=== PATIENT | female | born 1965 | race Caucasian/White ===

== ENCOUNTER 2016-06-25 21:56 | Observation (INO) | payer BC, OTHER ==
[~2016-06-25] VITALS: Ht 165.1 cm; Wt 59.0 kg
[2016-06-25] MEDS ORDERED: MULTCAP11 PO (22:29)
[2016-06-26] VITALS (11 sets, daily range): BP systolic 99–118; BP diastolic 57–64
[2016-06-26] MEDS ORDERED: ACETAMINOPHEN 325 MG TAB PO ONE
[2016-06-26] MEDS ORDERED: ONDANSETRON 4MG/2ML VIAL (J2405) IV ONE
[2016-06-26] MEDS ORDERED: NS 1,000 ML IV ONE
[2016-06-26] MEDS: MORPHINE 4 MG/ML 1ML SYRINGE IV PRN ×2 (00:10→01:24)
[2016-06-26 00:33] LABS: CONTROL LINE UCG INT CTR LINE PRESENT
[2016-06-26 00:44] LABS: BASO % 0.1 % (0.0-1.0); EOS % 0.2 % (0.0-3.0); LARGE UNSTAINED CELL # 0.1 K/mm3 (0.0-0.4); LARGE UNSTAINED CELL % 0.9 % (0.0-4.0); LYMPH # 0.2 K/mm3 (1.5-4.5); LYMPH % 1.8 % (24.0-44.0); MEAN CORPUSCULAR HEMOGLOBIN 22.6 pg (27.0-33.0); MEAN CORPUSCULAR HGB CONC 29.9 g/dl (32.0-36.5); MEAN CORPUSCULAR VOLUME 75.4 fl (80.0-96.0); MONO # 0.3 K/mm3 (0.0-0.8); MONO % 3.1 % (0.0-5.0); NEUTROPHILS # 9.8 K/mm3 (1.8-7.7); NEUTROPHILS % 93.9 % (36.0-66.0); PLATELET COUNT, AUTOMATED 176 k/mm3 (150-450); RED CELL DISTRIBUTION WIDTH 15.3 % (11.5-14.5); WHITE BLOOD COUNT 10.4 K/mm3 (4.0-10.0)
[2016-06-26 00:53] LABS: ALBUMIN 3.8 GM/DL (3.2-5.2); ALBUMIN/GLOBULIN RATIO 1.03 (1.00-1.93); ALKALINE PHOSPHATASE 44 U/L (45-117); ALT/SGPT 21 U/L (12-78); ANION GAP 12 MEQ/L (8-16); AST/SGOT 23 U/L (15-37); BILIRUBIN,DIRECT < 0.1 MG/DL (0.0-0.2); BILIRUBIN,TOTAL 0.4 MG/DL (0.2-1.0); BLOOD UREA NITROGEN 14 MG/DL (7-18); CALCIUM LEVEL 8.7 MG/DL (8.5-10.1); CARBON DIOXIDE LEVEL 21 MEQ/L (21-32); CHLORIDE LEVEL 107 MEQ/L (98-107); CREATININE FOR GFR 0.83 MG/DL (0.55-1.02); GLOMERULAR FILTRATION RATE > 60.0 (>51); GLUCOSE, FASTING 140 MG/DL (70-105); POTASSIUM SERUM 3.8 MEQ/L (3.5-5.1); SODIUM LEVEL 140 MEQ/L (136-145); TOTAL PROTEIN 7.5 GM/DL (6.4-8.2)
[2016-06-26] MEDS ORDERED: ISOVUE-370 76% 100ML VIAL (Q9967) As Ordered ONE (00:57)
[2016-06-26] MEDS ORDERED: PIPERACILLIN/TAZOBACTAM SOD 3.375 GM in D5W MINI-BAG PLUS 50 ML IV ONE (01:30)
--- NOTE | 2016-06-26 01:50 | REPUSA ---
CLINICAL HISTORY: Abdominal pain. TECHNIQUE: Multiple axial, sagittal and coronal CT images were obtained through the abdomen and pelvi s after administration of intravenous contrast material. COMMENTS: Enlarged appendix measuring 1.5 cm. Abnormal enhancement of the wall of the appendix with surrounding fat stranding. The liver is mildly enlarged without mass or defect. There is no intra or extrahepatic biliary ductal dilatation. 1.5 cm well-defined hypodense splenic lesion. The gallbladder is within normal limits. T he pancreas is of normal contour and attenuation characteristics. There is no evidence of adrenal mas s. Both kidneys demonstrate prompt and equal nephrograms. The kidneys are normal in size, shape and conf iguration. There is no evidence of renal or ureteral mass. No renal or ureteral calculi are identifie d. There is no hydroureter or hydronephrosis. There is no bowel wall thickening. No evidence for small or large bowel obstruction. There is no evid ence of abdominal ascites or lymphadenopathy. There is no evidence of intrinsic or extrinsic bladder mass. Mildly thickened bladder. There is no pe lvic ascites or lymphadenopathy. Moderate large bowel fecal stasis. Mild changes of pelvic congestion syndrome. Images of the lung bases show no evidence of pleural or parenchymal mass. There are no pleural effusi ons. The bony structures are free of lytic or blastic lesions. Multilevel degenerative changes are seen in volving the thoracolumbar spine. Scattered calcifications are seen involving the aorta and major bran ches compatible with atherosclerosis. Fat-containing umbilical hernia without incarceration. IMPRESSION: Acute appendicitis. No perforation or abscess formation. Hepatomegaly. Large bowel fecal stasis. Thank you for your kind referral of this patient.
[2016-06-26] MEDS ORDERED: VITMTA PO (02:46)
[2016-06-26] MEDS ORDERED: ONDANSETRON 4MG/2ML VIAL (J2405) IV PRN ×2 (04:45→13:00)
[2016-06-26] MEDS: LR 1,000 ML IV SCH ×2 (04:45→15:45)
[2016-06-26] MEDS: MORPHINE 2 MG/ML 1ML SYRINGE IV PRN ×2 (04:47→08:47)
[2016-06-26] MEDS ORDERED: fentaNYL 250 MCG/5 ML INJECTION (J3010) As Ordered ONE (10:14)
[2016-06-26] MEDS ORDERED: dexameTHASONE 4 MG/ML 1ML VIAL (J1100) As Ordered ONE (10:14)
[2016-06-26] MEDS ORDERED: LIDOCAINE 2% INJ 100 MG/5 ML SDV (FOR ANES.) As Ordered ONE (10:14)
[2016-06-26] MEDS ORDERED: ROCURONIUM BROMIDE 50 MG/5 ML VIAL As Ordered ONE (10:14)
[2016-06-26] MEDS ORDERED: ONDANSETRON 4MG/2ML VIAL (J2405) As Ordered ONE ×2 (10:14→12:14)
[2016-06-26] MEDS ORDERED: PROPOFOL 200 MG/20 ML VIAL As Ordered ONE (10:14)
[2016-06-26] MEDS ORDERED: MIDAZOLAM INJ 2 MG/2 ML VIAL (J2250) As Ordered ONE (10:15)
[2016-06-26] MEDS ORDERED: SEVOFLURANE INHAL SOLN 250 ML BTL As Ordered ONE (11:34)
[2016-06-26] MEDS ORDERED: BUPIVACAINE/EPIN 0.25% 30 ML VIAL As Ordered ONE (11:34)
[2016-06-26] MEDS ORDERED: NORCO, ANEXSIA 5/325MG TABLET (HYDROcodone/ACETAMINOPHEN) PO PRN (12:00)
[2016-06-26] MEDS ORDERED: ePHEDrine SULFATE 25 MG/5 ML(5MG/ML) SYRINGE As Ordered ONE (12:00)
[2016-06-26] MEDS ORDERED: ACETAMINOPHEN TAB 650MG DOSE (2X325MG) PO PRN (12:00)
[2016-06-26] MEDS ORDERED: KETOROLAC 30 MG/ML VIAL (J1885) IV PRN (12:00)
[2016-06-26] MEDS ORDERED: ceFAZolin 1GM INJ (J0690) As Ordered ONE (12:04)
[2016-06-26] MEDS ORDERED: NEOSTIGMINE 1MG/ML 5 ML SYRINGE (J2710) As Ordered ONE (12:14)
[2016-06-26] MEDS ORDERED: GLYCOPYRROLATE INJ 0.2 MG/ML 2 ML VIAL As Ordered ONE (12:14)
[2016-06-26] MEDS ORDERED: KETOROLAC 60 MG/2 ML VIAL (J1885) As Ordered ONE (12:14)
[2016-06-26] MEDS ORDERED: fentaNYL 100 MCG/2 ML INJECTION (J3010) IV PRN (13:00)
[2016-06-26] MEDS ORDERED: PIPERACILLIN/TAZOBACTAM SOD 3.375 GM in D5W MINI-BAG PLUS 50 ML IV SCH ×2 (13:00→16:15)
[2016-06-26] MEDS ORDERED: LR 1,000 ML IV SCH (13:00)
[2016-06-26] MEDS: SENOKOT S TAB PO SCH ×2 (15:44→21:18)
[2016-06-26] MEDS: PIPERACILLIN/TAZOBACTAM SOD 3.375 GM in D5W MINI-BAG PLUS 50 ML IV SCH ×2 (16:38→21:18)
[2016-06-27] VITALS: BP 84/54
[2016-06-27 04:00] VITALS: BP 95/52
[2016-06-27] MEDS: PIPERACILLIN/TAZOBACTAM SOD 3.375 GM in D5W MINI-BAG PLUS 50 ML IV SCH ×2 (04:45→09:38)
--- NOTE | 2016-06-27 06:31 | HPE ---
DATE OF ADMISSION: 06/26/2016 Reason for admission is right lower quadrant pain. HISTORY OF PRESENT ILLNESS: Patient is a 51-year-old female, started to have right lower quadrant pain, nausea and vomiting around 4 p.m. yesterday. Pain got progressively worse. She came the emergency room with a fever of 102. In the emergency room (ER), she had labs done, which showed a white count 10. However, CT scan showed signs of acute appendicitis. She was then admitted overnight. This morning her pain has improved, fevers gone after having some morphine and Zosyn. However, she still has significant pain and tenderness in the right lower quadrant. No recent trauma to the area. No recent illnesses. No previous abdominal surgeries. PAST MEDICAL HISTORY: Negative. HOME MEDICATIONS: None. ALLERGIES: None. SOCIAL HISTORY: Denies drug, alcohol or tobacco usage. FAMILY HISTORY: Noncontributory. REVIEW OF SYSTEMS: Pertinent positives negative, stated in the HPI. PHYSICAL EXAMINATION: General: Awake, alert, and oriented times three. No acute stress. Vital signs: Stable, currently afebrile. HEENT: Pupils equal, round, reactive to light and accommodation. Heart: S1, S2. Regular rate and rhythm. Lungs: Clear auscultation bilaterally. Abdomen: Soft, tender to palpation right lower quadrant. Localized guarding. No signs of peritonitis. Extremities: No clubbing, cyanosis or edema. LABORATORY DATA: White count is 10. IMAGING: CT abdomen and pelvis shows a dilated, thickened appendix consistent with appendicitis. ASSESSMENT AND PLAN: Patient is a 51-year-old female with signs and symptoms consistent with acute appendicitis. RECOMMENDATIONS: Proceed with laparoscopic, possible open appendectomy. Risks and benefits of the procedure not limited but including bleeding, infection, hernia formation, damage surrounding structure, need for further surgery are discussed in detail with the patient. Informed was obtained and procedure was planned. Postoperatively, she will be kept overnight and make sure she does not have anymore fevers. She will be given a couple more dose of intravenous (IV) antibiotics and plan to discharge home in the morning.
[2016-06-27 07:17] LABS: ANION GAP 10 MEQ/L (8-16); BLOOD UREA NITROGEN 10 MG/DL (7-18); CALCIUM LEVEL 8.1 MG/DL (8.5-10.1); CARBON DIOXIDE LEVEL 21 MEQ/L (21-32); CHLORIDE LEVEL 111 MEQ/L (98-107); CREATININE FOR GFR 0.65 MG/DL (0.55-1.02); GLOMERULAR FILTRATION RATE > 60.0 (>51); GLUCOSE, FASTING 102 MG/DL (70-105); POTASSIUM SERUM 3.9 MEQ/L (3.5-5.1); SODIUM LEVEL 142 MEQ/L (136-145)
[2016-06-27 07:25] LABS: MEAN CORPUSCULAR HEMOGLOBIN 22.9 pg (27.0-33.0); MEAN CORPUSCULAR HGB CONC 30.2 g/dl (32.0-36.5); MEAN CORPUSCULAR VOLUME 75.8 fl (80.0-96.0); RED CELL DISTRIBUTION WIDTH 15.7 % (11.5-14.5); WHITE BLOOD COUNT 11.4 K/mm3 (4.0-10.0)
[2016-06-27 08:15] VITALS: BP 94/52
[2016-06-27] MEDS: SENOKOT S TAB PO SCH (09:38)
--- NOTE | 2016-06-27 10:22 | RO ---
DATE OF PROCEDURE: 06/26/2016 PREOPERATIVE DIAGNOSIS: Acute appendicitis. POSTOPERATIVE DIAGNOSIS: Acute appendicitis. PROCEDURE: Laparoscopic appendectomy. SURGEON: Kaveh Horowitz DO PROMOTIONS PRODUCER: None. ANESTHESIA: General. ESTIMATED BLOOD LOSS (EBL): 5. COMPLICATIONS: None. INDICATION FOR PROCEDURE: The patient is a 51-year-old female with acute appendicitis. The remedy is to proceed laparoscopic, possible open appendectomy. Risks and benefits of the procedure not limited but including bleeding, infection, hernia formation, damage to surrounding structures, and need for further surgery were discussed in detail with the patient. Informed consent was obtained, and procedure was planned. DESCRIPTION OF PROCEDURE: The patient brought back to operating room #3 after sufficient sedation and was sterilely prepped and draped. Next, time-out was done to confirm proper patient and proper procedure. Following that, a 5 mm incision made in the left lower quadrant. Veress needle was inserted, and abdomen was insufflated to 15 mmHg of mercury. Next, the Veress needle was removed. A 55 mm Optiview port used to gain access to the abdomen. Once thee abdomen was entered, another 8 mm port was placed at the umbilicus and another 5 mm port suprapubic. The cecum was then identified. On gentle traction cephalad, the appendix was easily identified, as well. The appendix was elevated up. The mesoappendix was taken down using the Enseal all the way to the base. Once the base of the appendix was reached, two polydioxanone suture (PDS) Endoloops were placed around the base of the appendix and tightened. The appendix was then amputated using the Enseal and brought out through the umbilical port site with a 5 mm Endo Catch bag. The right lower quadrant was examined to confirm hemostasis. The abdomen was then desufflated. Skin incision closed with 4-0 Vicryl subcuticular sutures. The abdomen was cleaned and dried. Steri-Strips, 4 x 4, and tape were applied, thus ending the procedure.
[2016-06-27] MEDS ORDERED: NORCOTAB PO (12:10)
[2016-06-27] MEDS ORDERED: SENN1TAB2 PO (12:10)
== END 2016-06-27 14:25 | disposition home or self-care (01) ==
LOC: M ED 23:16 → M PED 23:17 → UNDOADMOB 06-26 02:04 → INTOOBSV 06-26 02:04 → M ED INP 06-26 02:04 → M PED 06-26 04:10 → UNDODISOB 06-27 14:25
PROVIDERS: ADMIT Surgery; ATTEND Surgery
DX: K35.89 Other acute appendicitis (principal)
CPT/HCPCS: 36415; 44970; 74177; 80048; 80076; 83605; 83690; 84703; 85014; 85018; 85025; 85027; 88304; 96375; 96376; 99284; G0378; J0690; J1100; J1885; J2250; J2405; J2543; J2710; J3010; Q9967

== ENCOUNTER → 2017-03-22 | Outpatient (REF) | payer OTHER ==
[~2017-03-22] MED LIST: MULTCAP11 PO; NORCOTAB PO; SENN1TAB2 PO; VITMTA PO
[2017-03-22 12:38] LABS: BASO % 2.2 % (0.0-1.0); EOS # 0.1 10^3/uL (0.0-0.50); EOS % 5.4 % (0.0-3.0); IMMATURE GRANULOCYTE % 2.2 % (0-0); LYMPH # 0.6 10^3/uL (1.5-4.5); MEAN CORPUSCULAR HEMOGLOBIN 26.6 pg (27.0-33.0); MEAN CORPUSCULAR HGB CONC 31.5 g/dl (32.0-36.5); MEAN CORPUSCULAR VOLUME 84.6 fl (80.0-96.0); MONO # 0.1 10^3/uL (0.0-0.8); MONO % 7.6 % (0.0-5.0); NEUTROPHILS % 19.6 % (36.0-66.0); PLATELET COUNT, AUTOMATED 138 10^3/uL (150-450); RED CELL DISTRIBUTION WIDTH 15.7 % (11.5-14.5)
[2017-03-22 12:57] LABS: BLASTS POS FLAG; LEFT SHIFT POS FLAG; NEUTROPHILS # 0.2 10^3/uL (1.8-7.7); POS COUNT POS FLAG; POSITIVE DIFF POS FLAG; POSITIVE MORPH POS FLAG; WBC SCAT POS FLAG; WHITE BLOOD COUNT 0.9 10^3/uL (4.0-10.0)
== END ==
LOC: M LABDRWAD 12:17 → M LAB REF 12:17
DX: C50.919 Malignant neoplasm of unspecified site of unspecified female breast (principal)

== ENCOUNTER → 2017-03-29 | Outpatient (REF) | payer OTHER ==
[2017-03-29 10:57] LABS: BASO # 0.1 10^3/uL (0.0-0.2); BASO % 0.7 % (0.0-1.0); EOS % 0.3 % (0.0-3.0); IMMATURE GRANULOCYTE % 1.7 % (0-0); LYMPH # 1.4 10^3/uL (1.5-4.5); LYMPH % 18.3 % (24.0-44.0); MEAN CORPUSCULAR HEMOGLOBIN 26.9 pg (27.0-33.0); MEAN CORPUSCULAR HGB CONC 31.4 g/dl (32.0-36.5); MEAN CORPUSCULAR VOLUME 85.6 fl (80.0-96.0); MONO # 0.6 10^3/uL (0.0-0.8); MONO % 7.3 % (0.0-5.0); NEUTROPHILS # 5.4 10^3/uL (1.8-7.7); NEUTROPHILS % 71.7 % (36.0-66.0); PLATELET COUNT, AUTOMATED 407 10^3/uL (150-450); RED CELL DISTRIBUTION WIDTH 17.2 % (11.5-14.5); WHITE BLOOD COUNT 7.5 10^3/uL (4.0-10.0)
== END ==
LOC: M LABDRWAD 10:32
DX: C50.919 Malignant neoplasm of unspecified site of unspecified female breast (principal)

== ENCOUNTER → 2017-04-10 | Outpatient (CLI) | payer OTHER ==
[2017-04-10 18:35] LABS: MEAN CORPUSCULAR HEMOGLOBIN 27.2 pg (27.0-33.0); MEAN CORPUSCULAR HGB CONC 31.6 g/dl (32.0-36.5); PLATELET COUNT, AUTOMATED 331 10^3/uL (150-450); RED CELL DISTRIBUTION WIDTH 16.8 % (11.5-14.5)
[2017-04-10 18:44] LABS: LEFT SHIFT POS FLAG; POSITIVE MORPH POS FLAG
[2017-04-10 18:45] LABS: ADD MANUAL DIFFER YES; DIFF SLIDE NUMBER 219
[2017-04-10 19:30] LABS: BANDS 3 % (< 11); BASOPHILS 4 % (0-4)
[2017-04-10 19:31] LABS: TOXIC GRANULATION 2+
[2017-04-10 19:32] LABS: DOHLE BODIES 1+
[2017-04-10 19:34] LABS: ANISOCYTOSIS 1+
== END ==
LOC: M ADAMS 13:35
DX: C50.919 Malignant neoplasm of unspecified site of unspecified female breast (principal)

== ENCOUNTER → 2017-04-24 | Outpatient (REF) | payer OTHER ==
[2017-04-24 20:40] LABS: HEMATOCRIT 29.4 % (36.0-47.0); HEMOGLOBIN 9.3 g/dl (12.0-16.0); MEAN CORPUSCULAR HEMOGLOBIN 28.7 pg (27.0-33.0); MEAN CORPUSCULAR HGB CONC 31.6 g/dl (32.0-36.5); MEAN CORPUSCULAR VOLUME 90.7 fl (80.0-96.0); PLATELET COUNT, AUTOMATED 230 10^3/uL (150-450); RED BLOOD COUNT 3.24 10^6/uL (4.00-5.40); RED CELL DISTRIBUTION WIDTH 18.5 % (11.5-14.5); WHITE BLOOD COUNT 3.2 10^3/uL (4.0-10.0)
[2017-04-24 20:42] LABS: ADD MANUAL DIFFER YES; DIFF SLIDE NUMBER 329; POS COUNT POS FLAG; POSITIVE DIFF POS FLAG; POSITIVE MORPH POS FLAG
[2017-04-24 22:12] LABS: ATYPICAL LYMPH 1 % (0-5); BANDS 4 % (< 11); BASOPHILS 2 % (0-4); EOSINOPHILS 2 % (0-5); LYMPHOCYTES 39 % (16-52); MONOCYTES 3 % (0-8); NEUTROPHILS 49 % (35-75)
[2017-04-24 22:13] LABS: ANISOCYTOSIS 1+; POIKILOCYTOSIS 1+; TEAR DROP CELLS 1+; TOXIC GRANULATION 2+
[2017-04-24 22:14] LABS: PLATELET ESTIMATE NORMAL (NORMAL); TOXIC VACUOLATION 1+
== END ==
LOC: M LAB REF 18:51
DX: C50.919 Malignant neoplasm of unspecified site of unspecified female breast (principal)
CPT/HCPCS: 85025

== ENCOUNTER → 2017-08-29 | Outpatient (REF) | payer OTHER ==
[2017-08-29 13:12] LABS: BASO # 0.1 10^3/uL (0.0-0.2); BASO % 0.6 % (0.0-1.0); EOS # 0.2 10^3/uL (0.0-0.50); EOS % 2.4 % (0.0-3.0); HEMOGLOBIN 13.2 g/dl (12.0-15.5); IMMATURE GRANULOCYTE % 0.3 % (0-3.0); LYMPH # 0.6 10^3/uL (1.5-4.5); MEAN CORPUSCULAR HEMOGLOBIN 31.7 pg (27.0-33.0); MEAN CORPUSCULAR HGB CONC 33.8 g/dl (32.0-36.5); MEAN CORPUSCULAR VOLUME 93.8 fl (80.0-96.0); MONO # 0.7 10^3/uL (0.0-0.8); MONO % 9.1 % (0.0-5.0); NEUTROPHILS # 6.2 10^3/uL (1.8-7.7); NEUTROPHILS % 79.6 % (36.0-66.0); PLATELET COUNT, AUTOMATED 256 10^3/uL (150-450); RED BLOOD COUNT 4.16 10^6/uL (4.00-5.40); RED CELL DISTRIBUTION WIDTH 14.4 % (11.5-14.5); WHITE BLOOD COUNT 7.8 10^3/uL (4.0-10.0)
== END ==
LOC: M LABDRWAD 12:42
DX: C50.111 Malignant neoplasm of central portion of right female breast (principal); Z17.0 Estrogen receptor positive status [ER+]
CPT/HCPCS: 85025

== ENCOUNTER → 2017-11-01 | Outpatient (CLI) | payer OTHER | LOC: M ONCR 13:09 | DX: C50.111 Malignant neoplasm of central portion of right female breast (principal); Z17.0 Estrogen receptor positive status [ER+] | CPT/HCPCS: 99201 ==

== ENCOUNTER 2017-11-12 09:08 | Outpatient (RCR) | payer OTHER | END 2017-11-13 | LOC: M ONCR 09:08 | DX: C50.811 Malignant neoplasm of overlapping sites of right female breast (principal) | CPT/HCPCS: 77334 ==

== ENCOUNTER 2017-11-14 15:43 | Outpatient (RCR) | payer OTHER | END 2017-12-14 | LOC: M ONCR 15:43 | DX: C50.811 Malignant neoplasm of overlapping sites of right female breast (principal) | CPT/HCPCS: 77300 ==

== ENCOUNTER 2017-12-18 09:58 | Outpatient (RCR) | payer OTHER | END 2018-01-13 | LOC: M ONCR 09:58 | DX: C50.811 Malignant neoplasm of overlapping sites of right female breast (principal) | CPT/HCPCS: 77336 ==

== ENCOUNTER → 2018-01-30 | Outpatient (CLI) | payer OTHER | LOC: M ONCR 10:23 | DX: C50.811 Malignant neoplasm of overlapping sites of right female breast (principal) ==

== ENCOUNTER → 2022-06-16 | Outpatient (CLI) | payer OTHER ==
[~2022-06-16] MED LIST changes: +HYDR-3715 PO; +MAGN200T PO; -NORCOTAB PO; +OMEG10002 PO; +SENN-53 PO; -SENN1TAB2 PO; +SILV40CR EXT; +VITA100093 PO
== END ==
LOC: M LABSMTC 09:51
PROVIDERS: ATTEND Anesthesiology
DX: Z01.812 Encounter for preprocedural laboratory examination (principal); Z20.822 Contact with and (suspected) exposure to COVID-19

== ENCOUNTER → 2022-06-21 | Day surgery (SDC) | payer OTHER ==
[~2022-06-21] VITALS: Ht 165.1 cm; Wt 54.0 kg
[~2022-06-21] MED LIST changes: +LIDOCAINE 2% 100MG/5ML SDV (FOR ANES.) As Ordered ONE; +NS 1,000 ML IV ONE; +propofoL 200 MG/20 ML VIAL As Ordered ONE
[2022-06-21 11:24] VITALS: BP 96/60
== END | disposition home or self-care (01) ==
LOC: M OPP 09:25
PROVIDERS: ATTEND Internal Medicine Gastroenterology
DX: Z12.11 Encounter for screening for malignant neoplasm of colon (principal); K52.832 Lymphocytic colitis; K64.0 First degree hemorrhoids; K57.30 Diverticulosis of large intestine without perforation or abscess without bleeding; Z85.3 Personal history of malignant neoplasm of breast; Z92.21 Personal history of antineoplastic chemotherapy; Z92.3 Personal history of irradiation

== ENCOUNTER → 2022-09-20 | Outpatient (REF) | payer OTHER ==
[~2022-09-20] MED LIST changes: -LIDOCAINE 2% 100MG/5ML SDV (FOR ANES.) As Ordered ONE; -NS 1,000 ML IV ONE; -propofoL 200 MG/20 ML VIAL As Ordered ONE
[2022-09-20 13:27] LABS: BASO % 1.3 % (0.0-1.0); EOS # 0.2 10^3/uL (0.0-0.5); EOS % 6.7 % (0.0-3.0); HEMATOCRIT 38.3 % (36.0-47.0); HEMOGLOBIN 12.2 g/dl (12.0-15.5); LYMPH # 1.1 10^3/uL (1.5-5.0); LYMPH % 33.8 % (24.0-44.0); MEAN CORPUSCULAR HEMOGLOBIN 31.5 pg (27.0-33.0); MEAN CORPUSCULAR HGB CONC 31.9 g/dl (32.0-36.5); MONO # 0.2 10^3/uL (0.0-0.8); MONO % 7.6 % (2.0-8.0); NEUTROPHILS # 1.6 10^3/uL (1.5-8.5); NEUTROPHILS % 50.6 % (36.0-66.0); PLATELET COUNT, AUTOMATED 285 10^3/uL (150-450); RED BLOOD COUNT 3.87 10^6/uL (4.00-5.40); WHITE BLOOD COUNT 3.1 10^3/uL (4.0-10.0)
[2022-09-20 13:56] LABS: ALBUMIN 3.3 G/DL (3.2-5.2); ALKALINE PHOSPHATASE 59 U/L (46-116); ALT/SGPT 15 U/L (7.0-40); AST/SGOT 31 U/L (<34); BILIRUBIN,TOTAL 0.5 MG/DL (0.3-1.2); BLOOD UREA NITROGEN 9 MG/DL (9-23); CALCIUM LEVEL 10.2 MG/DL (8.5-10.1); CARBON DIOXIDE LEVEL 26 MMOL/L (20-31); CHLORIDE LEVEL 108 MMOL/L (98-107); CREATININE FOR GFR 0.82 MG/DL (0.55-1.30); GLOMERULAR FILTRATION RATE > 60.0 (>51); GLUCOSE, FASTING 78 MG/DL (60-100); POTASSIUM SERUM 4.2 MMOL/L (3.5-5.1); SODIUM LEVEL 139 MMOL/L (136-145); TOTAL PROTEIN 5.9 G/DL (5.7-8.2)
== END ==
LOC: M LABDRWAD 12:45
PROVIDERS: ATTEND Nurse Practitioner Family
DX: C50.919 Malignant neoplasm of unspecified site of unspecified female breast (principal)

== ENCOUNTER → 2023-03-13 | Outpatient (REF) | payer OTHER ==
[2023-03-13 13:27] LABS: BASO # 0.1 10^3/uL (0.0-0.2); BASO % 1.4 % (0.0-1.0); EOS # 0.2 10^3/uL (0.0-0.5); EOS % 3.4 % (0.0-3.0); HEMATOCRIT 40.7 % (36.0-47.0); HEMOGLOBIN 13.1 g/dl (12.0-15.5); LYMPH # 0.9 10^3/uL (1.5-5.0); MEAN CORPUSCULAR HEMOGLOBIN 30.8 pg (27.0-33.0); MEAN CORPUSCULAR HGB CONC 32.2 g/dl (32.0-36.5); MEAN CORPUSCULAR VOLUME 95.8 fl (80.0-96.0); MONO # 0.8 10^3/uL (0.0-0.8); MONO % 12.7 % (2.0-8.0); NEUTROPHILS % 67.2 % (36.0-66.0); PLATELET COUNT, AUTOMATED 416 10^3/uL (150-450); RED BLOOD COUNT 4.25 10^6/uL (4.00-5.40); WHITE BLOOD COUNT 5.9 10^3/uL (4.0-10.0)
[2023-03-13 14:04] LABS: ALBUMIN 2.8 G/DL (3.2-5.2); ALKALINE PHOSPHATASE 45 U/L (46-116); ALT/SGPT 18 U/L (7.0-40); AST/SGOT 50 U/L (<34); BILIRUBIN,TOTAL 0.4 MG/DL (0.3-1.2); BLOOD UREA NITROGEN 18 MG/DL (9-23); CALCIUM LEVEL 9.4 MG/DL (8.5-10.1); CARBON DIOXIDE LEVEL 27 MMOL/L (20-31); CHLORIDE LEVEL 101 MMOL/L (98-107); CREATININE FOR GFR 0.78 MG/DL (0.55-1.30); GLOMERULAR FILTRATION RATE > 60.0 (>51); GLUCOSE, FASTING 83 MG/DL (60-100); POTASSIUM SERUM 4.3 MMOL/L (3.5-5.1); SODIUM LEVEL 135 MMOL/L (136-145); THYROID STIMULATING HORMONE 3.716 uIU/ML (0.55-4.78); TOTAL PROTEIN 5.9 G/DL (5.7-8.2)
[2023-03-13 14:20] LABS: CA15-3 ANTIGEN 153.9 U/ML (<32.4)
== END ==
LOC: M LABDRWAD 12:24
PROVIDERS: ATTEND Internal Medicine Medical Oncology
DX: C50.919 Malignant neoplasm of unspecified site of unspecified female breast (principal)